=== PATIENT | female | born 1950 | race Caucasian/White ===

== ENCOUNTER → 2021-03-19 10:26 | Outpatient (CLI) | payer OTHER, SELFPAY ==
--- NOTE | ~2021-03-19 | XR_ITS ---
XR hand RT 2V DATE: 03/19/2021 10:49 INDICATION: Localized swelling TECHNIQUE: 3 views COMPARISON: None FINDINGS: Diffuse osteopenia. There is polyarticular osteoarthritis including the first carpometacarpal and multiple interphalangea l joints. No fracture, dislocation, periosteal reaction or bone destruction is detected. IMPRESSION: Osteopenia Polyarticular osteoarthritis Reviewed, dictated and finalized at location A.
== END ==
PROVIDERS: PCP Internal Medicine; Referring Provider Internal Medicine; Visit Provider Internal Medicine
DX: R60.0 Localized edema (principal); M19.041 Primary osteoarthritis, right hand; M18.11 Unilateral primary osteoarthritis of first carpometacarpal joint, right hand
CPT/HCPCS: 73120